=== PATIENT | female | born 2005 | race Caucasian/White ===

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

== ENCOUNTER 2023-06-18 14:37 | Outpatient (REF) | payer MEDICAID, SELFPAY ==
[2023-06-20 22:48] LABS: TS Negative Control Passed; TS Panel A 1; TS Panel B 0; TS Positive Control Passed; TSpotTB Negative (Negative)
== END 2023-06-18 14:38 | disposition home or self-care (01) ==
LOC: HO.CHCLDS 14:37
PROVIDERS: Visit Provider Nurse Practitioner
DX: Z11.1 Encounter for screening for respiratory tuberculosis (principal)
CPT/HCPCS: 36415; 86481

== ENCOUNTER 2023-09-25 09:21 | Outpatient (REF) | payer MEDICAID, SELFPAY | END 2023-09-25 09:22 | disposition home or self-care (01) | LOC: HO.HHCLNP 09:21 | PROVIDERS: Visit Provider Nurse Practitioner | DX: R06.2 Wheezing (principal) | CPT/HCPCS: 87070 ==

== ENCOUNTER 2024-02-16 16:36 | Outpatient (REF) | payer MEDICAID, SELFPAY ==
[2024-02-16 17:58] LABS: Bacterial Vaginosis PCR POSITIVE (Negative); Candida Group PCR NOT DETECTED (Not Detect); Candida glab krusei PCR NOT DETECTED (Not Detect); Trichomonas vaginalis PCR NOT DETECTED (Not Detect)
[2024-02-16 18:34] LABS: CT PCR DETECTED (Not Detect.); NG PCR NOT DETECTED (Not Detect.)
== END 2024-02-16 16:37 | disposition home or self-care (01) ==
LOC: HO.HHCLNP 16:36
PROVIDERS: Visit Provider Advanced Practice Midwife
DX: N89.8 Other specified noninflammatory disorders of vagina (principal)
CPT/HCPCS: 0352U; 87491; 87591

== ENCOUNTER 2024-04-02 11:09 | Outpatient (REF) | payer MEDICAID, SELFPAY ==
[2024-04-02 16:39] LABS: Basophils Percent Auto 0.1 % (0-2); Eosinophils Absolute Auto 0.2 X10*3/uL (0.0-0.4); Eosinophils Percent Auto 2.2 % (0-4); Hematocrit 35.9 % (37.0-47.0); Hemoglobin 11.6 g/dl (12.0-16.0); Imm Gran Abs Auto 0.01 X10*3/uL (0.00-0.03); Imm Gran Pct Auto 0.1 % (0.0-0.4); Lymphocytes Percent Auto 29.1 % (20-40); MANUAL DIFF FLAG NO; Mean Corpuscular HGB Conc 32.3 g/dl (31.0-35.0); Mean Corpuscular Hemoglobin 27.9 pg (27.0-33.0); Mean Corpuscular Volume 86.3 fL (80.0-98.0); Mean Platelet Volume 10.9 fL (9.4-12.3); Monocytes Absolute Auto 0.5 X10*3/uL (0.1-1.2); Monocytes Percent Auto 6.9 % (2-11); Neutrophils Absolute Auto 4.2 x10*3/uL (2.0-8.3); Neutrophils Percent Auto 61.6 % (45-73); Platelet Count 230 X10*3/uL (160-400); Red Blood Count 4.16 X10*6/uL (4.20-5.50); Red Cell Distribution Width 14.2 % (11.0-16.0); White Blood Count 6.8 X10*3/uL (4.8-10.8)
[2024-04-02 17:10] LABS: TSH reflex Free T4 0.56 uIU/mL (0.32-4.0)
== END 2024-04-02 11:10 | disposition home or self-care (01) ==
LOC: HO.HHCL 11:09
PROVIDERS: Visit Provider Nurse Practitioner
DX: R53.83 Other fatigue (principal)
CPT/HCPCS: 36415; 82306; 84443; 85025

== ENCOUNTER 2024-05-13 17:43 | Outpatient (REF) | payer MEDICAID, SELFPAY ==
[2024-05-14 02:24] LABS: CT PCR DETECTED (Not Detect.); NG PCR NOT DETECTED (Not Detect.)
== END 2024-05-13 17:44 | disposition home or self-care (01) ==
LOC: HO.HHCLNP 17:43
PROVIDERS: Visit Provider Advanced Practice Midwife
DX: Z11.3 Encounter for screening for infections with a predominantly sexual mode of transmission (principal)
CPT/HCPCS: 87491; 87591

== ENCOUNTER 2024-08-05 14:55 | Outpatient (REF) | payer MEDICAID, SELFPAY ==
[2024-08-05 17:09] LABS: Estimated Glomerular Filt Rate > 60
[2024-08-06 07:56] LABS: Syphilis Screen Nonreactive (Nonreactive)
[2024-08-06 08:03] LABS: HBc Num1 0.25 S/CO (0.00-0.79); HBsAGNum1 0.38 S/CO (0.00-0.99); HIV AB/AG Nonreactive (Nonreactive); HIV Num 1 0.12 S/CO (0.00-0.99); Hepatitis B Core Antibody Nonreactive (Nonreactive); Hepatitis B Surface Antigen Negative (Negative); ~HepC Num1 0.21 S/CO (0.00-0.79); ~Hepatitis B Surface Antibody NONREACTIVE (Nonreactive); ~Hepatitis C Antibody Nonreactive (Nonreactive)
[2024-08-06 15:46] LABS: CT PCR NOT DETECTED (Not Detect.); NG PCR NOT DETECTED (Not Detect.)
== END 2024-08-05 14:56 | disposition home or self-care (01) ==
LOC: HO.HHCL 14:55
PROVIDERS: Visit Provider Advanced Practice Midwife
DX: Z11.3 Encounter for screening for infections with a predominantly sexual mode of transmission (principal); Z79.899 Other long term (current) drug therapy; Z11.59 Encounter for screening for other viral diseases; Z72.89 Other problems related to lifestyle
CPT/HCPCS: 82565; 86704; 86706; 86780; 86803; 87340; 87389; 87491; 87591

== ENCOUNTER 2024-10-11 13:34 | Outpatient (REF) | payer MEDICAID, SELFPAY ==
--- OUTSIDE RECORDS SUMMARY | 2024-10-11 15:21 | XMS_ITS | Encounter Summary ---
Author Organization [facility] Address [address] [place] [address] [address] [place] [address] Care Team Providers Care Molding Fitter Name Role Phone Collette Porras NP Primary Care Provider [phone] Reason for Visit * Reason Onset Date Comments Nurse Triage 02/23/2024 Encounter Details Date Type Department Care Team ([facility] st Contact Info) Description 02/23/2024 Telephone [facility] [address] [place] [address] Collette Porras NP [address] [place], [place] [phone] Nurse Triage Social History Tobacco Use Types Packs/Day Years Used Date Smoking Tobacco: Never Passive Smoke Exposure: Never Smokeless Tobacco: Never Alcohol Use Standard Drinks/Week Comments Not Currently 0 (1 standard drink = 0.6 oz pur e alcohol) Socially Depression Answer Date Recorded Patient Health Questionnaire-9 Score 8 12/25/2022 Housing Stability Answer Date Recorded What is your housing situation today? I have housing today, but I am worried about losing housing in the future 05/19/[address] you li ve. Do you have problems with any of the following? I am not sure 05/19/2023 Food Insecurity Answer Date Recorded Within the past 12 months, y ou worried that your food would run out before you got money to buy more: Sometimes True 2022 Within the past 12 months,th e food you bought just didn't last and you didn't have enough money to get more: Sometimes True 05/19/2023 Transportation Answer Date Recorded In the past 12 months, has l ack of transportation kept you from medical appts, meetings, work or from getting things needed for daily living? Yes, it has kept me from medical appointments or getting medications. 04/22/2023 Utilities Answer Date Recorded In the past 12 months, has t he electric, gas, oil or water company threatened to shut off services in your home? No 05/19/2023 Depression Answer Date Recorded Patient Health Questionnaire-2 Score 2 12/25/2022 Comments No Sex and Gender Information Value Date Recorded Sex Assigned at Female 05/13/2022 10:25 AM EDT Legal Sex Female 10:25 AM EDT Gender Identity Female 05/13/2022 10:25 AM EDT Sexual Orientation Straight 05/13/2022 10 :25 AM EDT documented as of this encounter Miscellaneous Notes * Telephone Encounter - Mor Reina - 02/23/2024 12:51 PM EDT TC from pt was prescribed doxycycline (Monodox) 100 MG capsule and now is having a med reaction. Itchiness. documented in this encounter Plan of Treatment Not on file documented as of this encounter Visit Diagnoses Not on filedocumented in this encounter Additional Health Concerns Assessment Noted Time PHQ-9 Depression Total Score: 8 12/26/19 23 9:51 AM EDT documented as of this encounter Care Teams Molding Fitter Relationship Specialty Start Date End Date Collette Porras NP [address] [place] [id number] PCP - General Family Medicine 04/22/23 documented as of this encounter
--- OUTSIDE RECORDS SUMMARY | 2024-10-11 15:21 | XMS_ITS | Encounter Summary ---
Author Organization [facility] Address [address] [place] [address] [address] [place] [address] Care Team Providers Care Circulation Assistant Name Role Phone Collette Porras PAC[place] Primary Care Provider [phone] Encounter Details Date Type Department Care Team (Latest Contact Info) Description 10/11/2024 Travel Social History Tobacco Use Types Packs/Day Years Used Date Smoking Tobacco: Never Passive Smoke Exposure: Never Smokeless Tobacco: Never Alcohol Use Standard Drinks/Week Comments Not Currently 0 (1 standard drink = 0.6 oz pur e alcohol) Socially Alcohol Answer Date Recorded Frequency of Alcohol Consumption Not on file 04/02/2024 Average Number of Drinks Not on file 024 Frequency of Binge Drinking Not on file 03/15 Score 0 04/02/2024 Depression Answer Date Recorded Patient Health Questionnaire-9 Score 1 04/02/2024 Patient Health Questionnaire-9 Score 1 04/02/2024 Last PHQ-9: Questionnaire Data Not on file 0 04/02/2024 Housing Stability Answer Date Recorded What is your housing situation today? I have erick kimbrough 03/26/[address] you li ve. Do you have problems with any of the following? I am not sure 03/26/2024 Food Insecurity Answer Date Recorded Within the past 12 months, y ou worried that your food would run out before you got money to buy more: Never True 03/26/2024 Within the past 12 months,th e food you bought just didn't last and you didn't have enough money to get more: Never True Transportation Answer Date Recorded In the past 12 months, has l ack of transportation kept you from medical appts, meetings, work or from getting things needed for daily living? No 03/26/2024 Utilities Answer Date Recorded In the past 12 months, has t he electric, gas, oil or water company threatened to shut off services in your home? No 03/26/2024 Depression Answer Date Recorded Patient Health Questionnaire-2 Score 0 04/02/2024 Internet Access Answer Date Recorded Internet Access Q1 Yes 03/26/2024 Internet Access Q2 Not on file 03/26/2024 Comments No Sex and Gender Information Value Date Recorded Sex Assigned at Female 05/13/2022 10:25 AM EDT Legal Sex Female 10:25 AM EDT Gender Identity Female 05/13/2022 10:25 AM EDT Sexual Orientation Straight 05/13/2022 10 :25 AM EDT documented as of this encounter Plan of Treatment Not on file documented as of this encounter Visit Diagnoses Not on filedocumented in this encounter Additional Health Concerns Assessment Noted Time PHQ-9 Depression Total Score: 1 04/02/20 24 9:54 AM EDT documented as of this encounter Care Teams Circulation Assistant Relationship Specialty Start Date End Date Collette Porras NP [address] [place] [id number] PCP - General Family Medicine 04/22/23 documented as of this encounter
--- OUTSIDE RECORDS SUMMARY | 2024-10-11 15:21 | XMS_ITS | Encounter Summary ---
Author Organization [facility] Address [address] [facility] [address] [place] [address] Care Team Providers Care Coating Machine Operator Name Role Phone Collette Porras NP Primary Care Provider [phone] Encounter Details Date Type Department Care Team ([facility] st Contact Info) Description 07/24/2023 Abstract [facility] [address] [place], [place] [phone] Collette Porras NP [address] [place], [place] [phone] Social History Tobacco Use Types Packs/Day Years Used Date Smoking Tobacco: Never Passive Smoke Exposure: Never Smokeless Tobacco: Never Alcohol Use Standard Drinks/Week Comments Not Currently 0 (1 standard drink = 0.6 oz pur e alcohol) Depression Answer Date Recorded Patient Health Questionnaire-9 [...] Time PHQ-9 Depression Total Score: 8 12/26/19 9:51 AM EDT documented as of this encounter Care Teams Coating Machine Operator Relationship Specialty Start Date End Date Collette Porras NP [address] [place] [id number] PCP - General Family Medicine 04/22/23 documented as of this encounter
--- OUTSIDE RECORDS SUMMARY | 2024-10-11 15:21 | XMS_ITS | Clinical Summary ---
Author Organization [employer] Address [address] [place] [address] 7 [place] [address] Care Team Providers Care Assistant Auditor Name Role Phone Collette Porras NP Primary Care Provider [phone] Allergies Active Allergy Reactions Criticality Noted Date Comments Egg White (Egg Protein) 12/25/2022 Latex Hives 12/25/2022 Shellfish Allergy High 12/25/2022 Medications * This document contains information received from the source organization and may not represent a complete record from that organization. fluticasone (Flonase) 50 MCG/ACT nasal sprayIndication s:Seasonal allergic rhinitis, unspecified trigger Administer 1 spray into each nostril in the morning. Shake gently. Before first use, prime pump. After use, clean tip and replace cap. 16 g 2 3 Active Additional Information Patient not taking.Reported on 09/24/2023 Nebulizers miscIndications :Moderate asthma with exacerbation, unspecified whether persistent Use nebulizer as instructed 1 each 4 Active Respiratory Therapy Supplies (Nebulizer/Tubi ng/Mouthpiece) kitIndications: Moderate asthma with exacerbation, unspecified whether persistent To be used with Nebulizer 1 kit 2 4 Active albuterol (2.5 MG/3ML) 0.083% nebulizer solutionIndicat ions:Moderate asthma with exacerbation, unspecified whether persistent Take 3 mL (2.5 mg) by nebulization every 6 (six) hours if needed for wheezing or shortness of breath. 75 mL 2 4 Active fluconazole (Diflucan) 150 MG tablet One tablet now. Repeat in 72h if needed 2 tablet 4 Active Mometasone Furoate (Asmanex HFA) 100 MCG/ACT aerosolIndicati ons:Moderate asthma with exacerbation, unspecified whether persistent Inhale 1 puff 2 times daily. Rinse and spit mouth after each use 13 g 4 Active albuterol 108 (90 Base) MCG/ACT inhalerIndicati ons:Moderate asthma with exacerbation, unspecified whether persistent Take 1-2 puffs q6 hr as needed wheezing or shortness of breath 18 g 3 4 Active cetirizine (ZyrTEC) 10 MG tabletIndicatio ns:Seasonal allergies Take 1 tablet (10 mg) by mouth at bedtime. 30 tablet 3 4 Active salicylic acid 17 % gelIndications: Foot callus Apply topically Once per day. 7 g 1 4 Active ferrous gluconate (Fergon) 324 (38 Fe) MG tablet Take 1 tablet (324 mg) by mouth every other day. Take with vitamin C 15 tablet 2 4 04/05/20 25 Active Ascorbic Acid (vitamin C) 250 MG tablet Take 1 tablet (250 mg) by mouth every other day. Take with iron 15 tablet 2 4 04/05/20 25 Active cholecalciferol (Vitamin D-3) 20 MCG (800 UNIT) tablet Take 1 tablet (20 mcg) by mouth Once per day. 30 tablet 2 4 Active doxycycline (Monodox) 100 MG capsule One twice a day for 7 days. Take with at least 8 ounces (large glass) of water, do not lie down for 30 minutes after 14 capsule 4 Active Drospirenone (Slynd) 4 MG tablet Take 1 tablet by mouth Once per day. 28 tablet 11 5 Active emtricitabine-t enofovir DF (Truvada) 200-300 MG tablet One tablet by mouth daily 90 tablet 5 Active metroNIDAZOLE (Flagyl) 500 MG tablet Take 1 tablet (500 mg) by mouth 2 times daily for 7 days. 14 tablet 5 10/19/19 25 Active Active Problems Problem Noted Date Diagnosed Date Wheezing 12/23/2023 Assessment & Plan (12/23/2023 11:41 PM EDT): -patient given albuterol treatment in clinic with positive results. LS clear with diminished bases following treatment and peak flow rate 300 L/min -albuterol nebulizer solution prescribed Moderate asthma with exacerbation 12/23/2023 Assessment & Plan (12/23/2023 11:49 PM EDT): -symptoms as assessment findings suggestive of asthma exacerbation complicated by URI -prednisone 40 mg daily for 5 days starting today -prescription for asmanex inhaler sent to pharmacy -albuterol inhaler and nebulizer solution with supplies prescribed. Patient advised use of nebulizer solution q6 h for 2 days then use as needed -follow-up 1 week or with worsening symptoms Routine adult health maintenance 12/23/2023 Assessment & Plan (12/23/2023 11:45 PM EDT): -age appropriate screening and immunizations up to date -STI screening to be completed at next visit -low cardiovascular risk -mental health screening to be completed at next visit -healthy social behaviors encouraged -anticipatory guidance reviewed: diet and exercise to be discussed at later visit Cough in adult 12/23/2023 Assessment & Plan (12/23/2023 11:49 PM EDT): -likely URI triggering asthma exacerbation -Rapid Influenza and Strep all negative today -advised increase fluid intake and rest -Sore throat: salt water gargles, drink tea with honey & lemon, suck lozenge -come to walk-in center if develop fever or symptoms worsen MDD (major depressive disorder) 12/26/2022 Assessment & Plan (12/26/2022 12:12 PM EDT): Assessment: Patient with little interest, feeling depressed, insomnia, no motivation, feeling overwhelmed/tired, poor appetite, difficulties in focusing, and feeling bad about herself. She denies SI/HI. Patient reports no history of psychiatric hospitalizations, self harm behavior, SI, or suicidal attempts. Presentation in the context of homelessness and lack of support. Patient will benefit from case management which provider will complete the referral. At this time Sarthak Stoddard meets criteria for Visit Diagnoses: Problem List Items Addressed This Visit Other MDD (major depressive disorder) Patient ready to address current needs address homelessness Strengths include open to receive help PLAN: 1. Follow up with [facility]: Not recommended for follow-up 2. Patient goal is obtain housing 3. Behavioral Recommendations a. Patient will engage with case management b. Patient may request to speak with a [facility] during next PCP visit, if needed Constipation 12/25/2022 Maternal varicella, non-immune 12/25/2022 Pilonidal disease 02/01/2022 Overweight 12/11/2021 Anxiety 12/10/2018 Allergic rhinitis 04/29/2013 Contact dermatitis 04/29/2013 Resolved Problems Problem Noted Date Diagnosed Date Resolved Date Environmental and seasonal allergies 12/25/2022 12/25/2022 Mild intermittent asthma 12/25/2022 Encounters Date Type Department Care Team Description 10/11/2024 1:00 PM EDT Office Visit [facility] [address] [place] [phone] Mirella Emerson CNM Urinary frequency (Primary Dx); Vaginal discharge; Routine cervical smear; Screening examination for venereal disease 10/11/2024 Travel 09/24/2024 Population Health Risk Score [facility] Department [address] [place] [phone] Provider, Population Health Generic 08/06/2024 Telephone [facility] [address] [place] [phone] Gauri Rivera, KAYA 08/06/[address] [address] Roxana Cannon RN Results 08/06/2024 Orders Only [facility] [address] [place] [phone] Mirella Emerson CNM 07/19/2024 11:15 AM EST Office Visit [address] [address] Mirella Emerson CNM Encntr screen for infections w sexl mode of transmiss (Primary Dx); 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 khai fied surface antigen) 04/29/2013 Influenza, seasonal, injecta ble, preservative free 04/02/2024 MMR 08/10/2007,2004 Meningococcal MCV4P ACYW-135 12/11/2021,08/02/19 15 Pfizer Covid-19 Vaccine 12+ 06/18/2023 Pneumococcal Conjugate PCV 7 08/10/2007, 03/23/2004,2003,08/16 Tdap 08/06/2022,04/10/2020,08/02/2014 Varicella 11/23/2007,2004 Social History Tobacco Use Types Packs/Day Years Used Date Smoking Tobacco: Never Passive Smoke Exposure: Never Smokeless Tobacco: Never Tobacco Cessation:Counseling Given: Not Answered Alcohol Use Standard Drinks/Week Comments Not Currently [...] Orientation Straight 05/13/2022 10 :25 AM EDT Last Filed Vital Signs Vital Sign Reading Time Taken Comments Blood Pressure 128/60 10/11/2024 1:04 PM EDT Pulse 72 10/11/2024 1:04 PM EDT Temperature 36.8 ??C (98.2 ??F) 10/11/2024 1:04 PM ED T Respiratory Rate 16 10/11/2024 1:0 4 PM EDT Oxygen Saturation 100% 10/11/2024 1:04 PM EDT Inhaled Oxygen Concentration - - Weight 58.4 kg (128 lb 12.8 oz) 10/11/2024 1:04 PM EDT Height 149.9 cm (4' 11 ) 10/11/2024 1:04 PM EDT Body Mass Index 26.01 10/11/2024 1:04 PM EDT Plan of Treatment Health Maintenance Due Date Last Done Comments Dental Oral Exam 04/19/2016 10/18/2015, , 09/28/2014, Additional history exists Dental Prophylaxis 04/19/2016 10/18/2015, 0 04/07/2015, 09/28/2014, Additional history exists Dental X-Ray: Bitewings 10/18/2016 10/18/19 16, 04/07/2015, 09/28/2014, Additional history exists Dental X-Ray: Full Mouth 10/20/2017 10/19/2014 Pneumococcal Vaccine: Pediatrics (0 to 5 Years) and At-Risk Patients (6 to 49) Years) (1 of 2 - PCV) 2022 08/10/2007, 03/23/2004, 2003, Additional history exists COVID-19 Vaccine ( season) 2024 06/18/2023, 02/06/2022, 12/12/2021 Pap Smear 2024 SDOH Screening 03/26/2025 03/26/2024 Alcohol/Substance Use Screening 04/02/2025 04/02/2024 Depression Screening 04/02/2025 04/02/2024, 04/02/20 Chlamydia and Gonorrhea Screening 08/05/2025 08/05/2024, 05/13/2024, 02/16/2024, Additional history exists Family Planning (PISQ) 10/11/2025 10/11/2024 Tobacco Screening 10/11/2025 10/11/2024 DTaP/Tdap/Td Vaccines (9 - Td or Tdap) 08/06/2032 08/06/2022, 04/10/2020, 08/02/2014, Additional history exists Zoster Vaccines (1 of 2) 2053 RSV Patients and Patients Aged 60 years or older (1 - 1-dose 75+ series) 2078 Hepatitis B Vaccines Completed 03/23/2004, 2003, 2003 HIB Vaccines Completed 09/12/2004, 10/12, 2003 IPV Vaccines Completed 08/10/2007, 03/14, 2003, Additional history exists Hepatitis A Vaccines Completed 08/02/2014, 04/29/20 13 HPV Vaccines Completed 08/01/2016, 08/02/2014 Meningococcal Vaccine Completed 12/11/2021, 015 Influenza Vaccine Completed 04/02/2024, , 04/10/2020, Additional history exists HIV Screening Completed 08/05/2024, 12/12, 12/11/2021 Hepatitis C Screening Completed 08/05/2024 , 12/25/2022, 12/11/2021 RSV under 20 months Aged Out No longe r eligible based on patient's age to complete this topic Rotavirus Vaccines Aged Out No longer eligible based on patient's age to complete this topic Procedures Procedure Name Priority Date/Time Associated Diagnosis Comments POCT WET MOUNT/ALEXANDRA Routine 10/11/2024 2: 06 PM EDT Vaginal discharge POCT URINALYSIS DIPSTICK Routine 10/11/2024 1:21 PM EDT Urinary frequency HEPATITIS C AB W/REFL TO HCV RNA, QN, PCR Routine 08/05/2024 3:00 PM EST Encntr screen for infections w sexl mode of transmiss HIV 1/2 ANTIGEN/ANTIBODY, FOURTH GENERATION W/RFL Routine 08/05/2024 3:00 PM EST Encntr screen for infections w sexl mode of transmiss SYPHILIS SCREEN Routine 08/05/2024 3:00 PM EST Encntr screen for infections w sexl mode of transmiss HEPATITIS B CORE AB TOTAL Routine 08/05/2024 3:00 PM EST Encntr screen for infections w sexl mode of transmiss HEPATITIS B SURFACE ANTIGEN, EIA Routine 08/05/2024 3:00 PM EST Encntr screen for infections w sexl mode of transmiss HEPATITIS B SURFACE ANTIBODY, QUALITATIVE Routine 08/05/2024 3:00 PM EST Encntr screen for infections w sexl mode of transmiss CREATININE, SERUM Routine 08/05/2024 3:0 0 PM EST prison use of drug CHLAMYDIA/N. GONORRHOEAE RNA, TMA, UROGENITAL Routine 08/05/2024 3:00 PM EST Encntr screen for infections w sexl mode of transmiss PROPHYLAXIS - CHILD Routine 10/18/2015 1 2:00 AM EDT BITEWINGS - 4 RADIOGRAPHIC IMAGES Routine 10/18/2015 12:00 AM EDT PERIODIC ORAL EVALUATION - ESTABLISHED PATIENT Routine 10/18/2015 12:00 AM EDT PANORAMIC RADIOGRAPHIC IMAGE Routine 10/19/2014 12:00 AM EDT from Last 3 Months or Most Recently Relevant to Health Maintenance Results * POCT fern test, vaginal fluid manually resulted (10/11/2024 2:06 PM EDT) ALEXANDRA Prep Positive Comment:pH 5, pos whiff, pos clue, neg trich, neg wbc Vaginal Fluid Vaginal structure / Unknown 10/11/2024 2:06 PM EDT [facility] [employer] POINT OF CARE TEST ENTER/ EDIT ORDERABLES Final Result * POCT urinalysis dipstick manually resulted (10/11/2024 1:21 PM EDT) Color, UA Yellow Clarity, UA Clear Glucose, UA Negative Bilirubin, UA Negative Ketones, UA Negative Spec Grav, UA 1.010 Blood, UA Negative Negative, None Detected pH, UA 7.0 Protein, UA Negative Urobilinogen, UA 0.2 Leukocytes, UA Negative Negative, Rare, Trace Nitrite, UA Negative Negative, None Detected Appearance, UA clear QC Media Lot # [id number] Lot# Expiration Date [id number] Urine 10/11/2024 1:21 PM EDT [facility] POINT OF CARE TEST ENTER/ EDIT ORDERABLES Final Result * Syphilis Screen (08/05/2024 3:00 PM EST) Syphilis Screen Nonreactive Nonreactive [facility] Blood Venous blood specimen / Unknown 08/05/2024 3:00 PM EST 08/05/2024 4:36 PM EST [facility] LAB BLOOD ORDERABLES Megan l Result Performing Organization Address [facility] Co de Phone Number [facility] [address] [place] [phone] * Creatinine, Serum (08/05/2024 3:00 PM EST) Pathologist [facility] Creatinine, Serum 0.83 0.5 - 1.4 mg/dL [facility] Estimated Glomerular Filt Rate >60 [facility] Comment:Chronic Kidney Disea se: Estimated GFR < 60 mL/min/1.76q2Hosrlv Kidney Disease: Estimated GFR < 15 mL/min/1.73m2 Blood 08/05/2024 3:0 0 PM EST 08/05/2024 4:36 PM EST [facility] LAB BLOOD ORDERABLES Megan l Result Performing Organization Address [facility] Co de Phone Number [facility] [address] [place] [phone] * Hepatitis C Antibody with Reflex to HCV, RNA, Quantitative, Real-Time PCR (08/05/2024 3:00 PM EST) [facility] Hepatitis C Antibody Nonreactive Nonreactive [facility] Comment:Antibodies to HCV no t detected; does not exclude early acuteHCV infection. Blood Venous blood specimen / Unknown 08/05/2024 3:00 PM EST 08/05/2024 4:36 PM EST [facility] BLOOD ORDERABLES Megan l Result Performing Organization Address [facility] Co de Phone Number [facility] [address] [place] [phone] * Chlamydia/N. Gonorrhoeae RNA, TMA, Urine (08/05/2024 3:00 PM EST) CT PCR NOT DETECTED Not Detect. [facility] Comment:A not detected test result does not exclude the possibilityof infection because test results can be affected byimproper specimen collection, concurrent antibiotic therapy,or the number of organisms in the specimen which may bebelow the sensitivity of the test. As with many diagnostictests, results from the Xpert CT/NG assay should beinterpreted in conjunction with other laboratory andclinical data available to the clinician.Xpert CT/NG performance has not been evaluated in patientsless than 14 years of age. The assay should not be used forthe evaluationof suspected sexual abuse or for other medico-legalindications. Additional testing is recommended in anycircumstance when false positive or false negative resultscould lead to adverse medical, social or psychologicalconsequences. NG PCR NOT DETECTED Not Detect. [facility] Comment:A not detected test result does not exclude the possibilityof infection because test results can be affected byimproper specimen collection, concurrent antibiotic therapy,or the number of organisms in the specimen which may bebelow the sensitivity of the test. As with many diagnostictests, results from the Xpert CT/NG assay should beinterpreted in conjunction with other laboratory andclinical data available to the clinician.Xpert CT/NG performance has not been evaluated in patientsless than 14 years of age. The assay should not be used forthe evaluationof suspected sexual abuse or for other medico-legalindications. Additional testing is recommended in anycircumstance when false positive or false negative resultscould lead to adverse medical, social or psychologicalconsequences. Urine, Random 08/05/2024 3: 00 PM EST 08/05/2024 4:49 PM EST Narrative [facility] - 08/06/2024 3:46 PM EST Urine us Mirella Emerson CNM LAB MICROBIOLOGY - GENERA L ORDERABLES Final Result [facility] [address] [place] [phone] * Hepatitis B surface antigen, EIA (08/05/2024 3:00 PM EST) Pathologist [facility] Hepatitis B Surface Ag Negative Negative [facility] Blood Venous blood specimen / Unknown 08/05/2024 3:00 PM EST 08/05/2024 4:36 PM EST [facility] BLOOD ORDERABLES Megan l Result Performing Organization Address City/[facility]/ZIP Co de Phone Number [facility] [address] [place] [phone] * Hepatitis B Core Antibody, Total (08/05/2024 3:00 PM EST) Pathologist [facility] Hepatitis B Core Antibody Nonreactive Nonreactive [facility] Blood Venous blood specimen / Unknown 08/05/2024 3:00 PM EST 08/05/2024 4:36 PM EST [facility] LAB BLOOD ORDERABLES Megan l Result Performing Organization Address City/[facility] Co de Phone Number [facility] [address] [place] [phone] * HIV-1/2 Antigen and Antibodies, Fourth Generation, with Reflexes (08/05/2024 3:00 PM EST) Pathologist [facility] HIV AB/AG Nonreactive Nonreactive [facility] Comment:HIV-1 p24 Ag and/or HIV-1/HIV-2 Ab not detected.A test result that is nonreactive does not exclude thepossibility of exposure to or infection with HIV-1 and/orHIV-2. Nonreactive results in this assay for individualswith prior exposure to HIV-1 and/or HIV-2 may be due toantigen and antibody levels that are below the limit ofdetection of this assay.The [employer] HIV Ag/Ab Combo assay result andsupplemental assay results should be interpreted inconjunction with the patient's clinical presentation,history and other laboratory results. If the results areinconsistent with clinical evidence, additional testing issuggested to confirm the result. Blood Venous blood specimen / Unknown 08/05/2024 3:00 PM EST 08/05/2024 4:36 PM EST Mirella Meeksprimitivo [employer] [facility] LAB BLOOD ORDERABLES Megan l Result Performing Organization Address City/[facility] Co de Phone Number [facility] [address] [place] [phone] [phone] * Hepatitis B Surface Antibody, Qualitative (08/05/2024 3:00 PM EST) ~Hepatitis B Surface Antibody NONREACTIVE Nonreactive [facility] Comment:Nonreactive: < 8.00 mIU/mL Blood Venous blood specimen / Unknown 08/05/2024 3:00 PM EST 08/05/2024 4:36 PM EST [facility] [facility] LAB BLOOD ORDERABLES Megan l Result Performing Organization Address City/[facility] Co de Phone Number [facility] [address] [place] [phone] [phone] from Last [address] [facility] C3 * Guarantor: Sarthak Stoddard Account Type Relation to Patient Date of Phone Billing Address Dental Self 2005 [address] [place] [address] [address]-[facility] MEDICAID STAND ADULT Care Teams Assistant Auditor Relationship Specialty Start Date End Date Collette Porras NP [address] [place] [phone] PCP - General Family Medicine 04/22/23
--- OUTSIDE RECORDS SUMMARY | 2024-10-11 15:21 | XMS_ITS | Encounter Summary ---
Author Organization [email or web address] Address [address] [facility] [address] [place] [address] Care Team Providers Care Vessel Ordinary Seaman Name Role Phone Karleykelly Collette PACHECO Primary Care Provider [phone] Encounter Details Date Type Department Care Team ([facility] st Contact Info) Description 02/17/2024 Orders Only [facility] [address] [place], [place] [phone] Mirella Emerson CNM [address] [place], [place] [phone] Social History Tobacco Use Types Packs/Day Years [...] documented as of this encounter Care Teams Vessel Ordinary Seaman Relationship Specialty Start Date End Date Collette Porras NP [address] [place] [address] PCP - General Family Medicine 04/22/23 documented as of this encounter
--- OUTSIDE RECORDS SUMMARY | 2024-10-11 15:21 | XMS_ITS | Encounter Summary ---
Author Organization [facility] Address [address] [place] [address] [address] [place] [address] Care Team Providers Care Home Energy Auditor Name Role Phone Collette Porras NP Primary Care Provider [phone] Reason for Visit * Reason Onset Date Comments Lab Orders 06/17/2023 Encounter Details Date Type Department Care Team (Late st Contact Info) Description 06/17/2023 Telephone [facility] [address] [place] [address] Collette Porras NP [address] [place], [place] [phone] Lab Orders Social History Tobacco Use Types Packs/Day Years [...] encounter Miscellaneous Notes * Telephone Encounter - Ghassan Padilla RN - 06/18/2023 11:47 AM EST Incoming call from pt. For order TB lab order for school. TB lab order is in pt's chart. Pt. Advised to go to lab at her convenience. Pt. Also looking for Flu vaccine, advised to go to walk in at vaccine clinic at her convenience. Pt. Verbally agreed and understood. * Telephone Encounter - Ghassan Padilla RN - 06/18/2023 11:19 AM EST T/C to pt. For below message, No answer. LVM to call back on [phone]. 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 documented in this encounter Plan of Treatment Not on file documented as of this encounter Visit Diagnoses Not on filedocumented in this encounter Additional Health Concerns Assessment Noted Time PHQ-9 Depression Total Score: 8 12/26/19 23 9:51 AM EDT documented as of this encounter Care Teams Home Energy Auditor Relationship Specialty Start Date End Date Collette Porras NP [address] [place] [address] PCP - General Family Medicine 04/22/23 documented as of this encounter
--- OUTSIDE RECORDS SUMMARY | 2024-10-11 15:21 | XMS_ITS | Encounter Summary ---
Author Organization [employer] [facility] Address [address] [place] [address] 7 [place] [address] Care Team Providers Care Ophthalmic Pathologist Name Role Phone Karleykelly Collette BERGMAN Primary Care Provider [phone] Reason for Visit * Reason Comments Gynecologic Exam Encounter Details Date Type Department Care Team ([facility] st Contact Info) Description 10/11/2024 1:00 PM EDT Office Visit [facility] [address] [place] [address] Mirella Emerson CNM [address] [place] [address] Urinary frequency (Primary Dx); Vaginal discharge; Routine cervical smear; Screening examination for venereal disease Social History Tobacco Use Types Packs/Day Years [...] AM EDT documented as of this encounter Last Filed Vital Signs Vital Sign Reading Time Taken Comments Blood Pressure 128/60 10/11/2024 1:04 PM EDT Pulse 72 10/11/2024 1:04 PM EDT Temperature 36.8 ??C (98.2 ??F) 10/11/2024 1:04 PM ED T Respiratory Rate 16 10/11/2024 1:04 PM EDT Oxygen Saturation 100% 10/11/2024 1:04 PM EDT Inhaled Oxygen Concentration - - Weight 58.4 kg (128 lb 12.8 oz) 10/11/2024 1:04 PM EDT Height 149.9 cm (4' 11 ) 10/11/2024 1:04 PM EDT Body Mass Index 26.01 10/11/2024 1:04 PM EDT documented in this encounter Progress Notes * Mirella Emerson CNM - 10/11/2024 1:00 PM EDT Subjective Patient ID: Sarthak Stoddard is a 19 y.o. female who presents for PROGRAM [employer]IDE [employer] WORK visit Positive chlamydia 05/13/2024, rx'd doxycycline. New rx sent in 06/15/2024. Gonorrhea/Chlamydia neg,HIV, syphilis, Hep C neg 07/2024. Hep B nonimmune. Switched from NuvaRing to Slynd due to new onset migraines. Not currently taking oral contraceptivepill or Truvada. Using condoms. 2 AMAB partners since last visit with me. Oral/vaginal sex. Notes some urinary frequency and vaginal discharge recently. Due for pap, agrees to this today. Received HPV vaccine series. Happy with condoms for now. Aware of EC. Planning to start oral contraceptive pill in the near future. Has Truvada rx at home, but hasn't started. LMP 09/19, on time and normal for her. Review of Systems Genitourinary: Positive for frequency and vaginal discharge. Negative for decreased urine volume, dyspareunia, dysuria, flank pain, hematuria, menstrual problem, pelvic pain, urgency, vaginal bleeding and vaginal pain. Objective BP 128/60 (BP Location: Left arm, Patient Position: Sitting, BP Cuff Size: Adult) Pulse 72 Temp98.2 ??F (36.8 ??C) (Temporal) Resp 16 Ht 4' 11 (1.499 m) Wt 128 lb 12.8 oz (58.4 kg) LMP 09/19/2024 (Exact Date) SpO2 100% BMI 26.01 kg/m?? Physical Exam Constitutional: Appearance: Normal appearance. Genitourinary: General: Normal vulva. Labia: Right: No rash, tenderness, lesion or injury. Left: No rash, tenderness, lesion or injury. Vagina: Normal. No signs of injury and foreign body. No vaginal discharge, erythema, tenderness, bleeding or lesions. Cervix: No cervical motion tenderness, discharge, friability, lesion, erythema, cervical bleeding or eversion. Uterus: Normal. Not enlarged and not tender. Adnexa: Right adnexa normal and left adnexa normal. Right: No mass, tenderness or fullness. Left: No mass, tenderness or fullness. Neurological: Mental Status: She is alert. Psychiatric: Mood and Affect: Mood normal. Behavior: Behavior normal. Assessment/Plan Diagnoses and all orders for this visit: Urinary frequency - POCT urinalysis dipstick manually resulted Negative UA. Will treat bacterial vaginosis. Let me know if urinary symptoms persist. Vaginal discharge - POCT fern test, vaginal fluid manually resulted Consistent with bacterial vaginosis. Prefers oral treatment. Metronidazole sent in. Abstain from sex during treatment. Report worsening or persistent symptoms. Routine cervical smear - Pap Smear Initial pap today. Reviewed indications for screening and usual followup. Will contact with results. Repeat 3y if normal. Reviewed that minor cellular changes are common, and if these are noted, we will repeat pap in 1y. Screening examination for venereal disease - STI testing add on (NG, CT, Trich) - Chlamydia/N. Gonorrhoeae RNA, TMA, Throat; Future - Syphilis Screen; Future - HIV-1/2 Antigen and Antibodies, Fourth Generation, with Reflexes; Future Oral and pap based STI testing sent. HIV/syphilis ordered. Will contact with results. If HIV negative, may start Truvada which she has at home. Will need followup at 3 months. Will offer Heplisav vaccine when we contact with results. Briefly discussed DoxyPEP. Reviewed not advised if or possibility of , reviewed lack of data for AFAB folks, but we have no reason to think it wouldn't be effective. Let me know if interested. Will check in again on this when we contact with results. Other orders - metroNIDAZOLE (Flagyl) 500 MG tablet; Take 1 tablet (500 mg) by mouth 2 times daily for 7 days. documented in this encounter Plan of Treatment Scheduled Orders Name Type Priority Associated Diagnoses Order Schedule Pap Smear Pathology and Cytology Routine Routine cervical smear Ordered: 10/11/2024 STI testing add on (NG, CT, Trich) Pathology and Cytology Routine Screening examination for venereal disease Ordered: 10/11/2024 Chlamydia/N. Gonorrhoeae RNA, TMA, Throat Microbiology Routine Screening examination for venereal disease Expected: 10/11/2024 (Approximate), Expires: 10/11/2025 Syphilis Screen Lab Routine Screening examination for venereal disease Expected: 10/11/2024 (Approximate), Expires: 10/11/2025 HIV-1/2 Antigen and Antibodies, Fourth Generation, with Reflexes Lab Routine Screening examination for venereal disease Expected: 10/11/2024 (Approximate), Expires: 10/11/2025 documented as of this encounter Procedures Procedure Name Priority Date/Time Associated Diagnosis Comments POCT WET MOUNT/ALEXANDRA Routine 10/11/2024 2: 06 PM EDT Vaginal discharge POCT URINALYSIS DIPSTICK Routine 10/11/2024 1:21 PM EDT Urinary frequency documented in this encounter Results * POCT fern test, vaginal fluid manually resulted (10/11/2024 2:06 PM EDT) ALEXANDRA Prep Positive Comment:pH 5, pos whiff, pos clue, neg trich, neg wbc Vaginal Fluid Vaginal structure / Unknown 10/11/2024 2:06 PM EDT Mirella Emerson [facility] POINT OF CARE TEST ENTER/ EDIT ORDERABLES [...] Media Lot # [id number] Lot# Expiration Date [id number] Urine 10/11/2024 1:21 PM EDT Mirella Emerson [facility] POINT OF CARE TEST ENTER/ EDIT ORDERABLES Final Result documented in this encounter Visit Diagnoses Diagnosis Urinary frequency- Primary Vaginal discharge Leukorrhea, not specified as infective Routine cervical smear Screening for malignant neoplasm of the cervix Screening examination for venereal disease documented in this encounter Additional Health Concerns Assessment Noted Time PHQ-9 Depression Total Score: 1 04/02/20 24 9:54 AM EDT documented as of this encounter Care Teams Ophthalmic Pathologist Relationship Specialty Start Date End Date Collette Porras NP [address] [place] [address] PCP - General Family Medicine 04/22/23 documented as of this encounter
[2024-10-12 08:19] LABS: HIV AB/AG Nonreactive (Nonreactive); HIV Num 1 0.06 S/CO (0.00-0.99)
[2024-10-12 08:21] LABS: Syphilis Screen Nonreactive (Nonreactive)
== END 2024-10-11 13:35 | disposition home or self-care (01) ==
LOC: HO.HHCL 13:34
PROVIDERS: Visit Provider Advanced Practice Midwife
DX: Z11.3 Encounter for screening for infections with a predominantly sexual mode of transmission (principal)
CPT/HCPCS: 36415; 86780; 87389

== ENCOUNTER 2024-10-11 16:38 | Outpatient (REF) | payer MEDICAID, SELFPAY ==
--- OUTSIDE RECORDS SUMMARY | 2024-10-11 18:07 | XMS_ITS | Encounter Summary ---
Author Organization [employer] Address [address] [place] [address] 7 [place] [address] Care Team Providers Care Security Sme Name Role Phone Collette Porras NP Primary Care Provider [phone] Reason for Visit * Reason Onset Date Comments Lab Orders 06/17/2023 Encounter Details Date Type Department Care Team (Late st Contact Info) Description 06/17/2023 Telephone [facility] MEDICINE [address] [place] [address] Collette Porras NP [address] [place], [place] [phone] Lab Orders Social History Tobacco Use Types [...] No answer. LVM to call back on [phone]. * Telephone Encounter - Dorie Goss - [...] documented as of this encounter Care Teams Security Sme Relationship Specialty Start Date End Date Collette Porras NP [address] [place] [address] PCP - General Family Medicine 04/22/23 documented as of this encounter
--- OUTSIDE RECORDS SUMMARY | 2024-10-11 18:07 | XMS_ITS | Clinical Summary ---
Author Organization [employer] Address [address] [place] [address] 7 [place] [address] Care Team Providers Care Gunnery/Ordnance Officer Name Role Phone Collette Porras NP Primary Care Provider [phone] Allergies Active Allergy Reactions Criticality Noted Date [...] receive help PLAN: 1. Follow up with [facility]: Not recommended for follow-up 2. Patient goal is obtain housing 3. Behavioral Recommendations a. Patient will engage with case management b. Patient may request to speak with a [facility] during next PCP visit, if needed Constipation 12/25/2022 Maternal varicella, non-immune 12/25/2022 Pilonidal disease 02/01/2022 Overweight 12/11/2021 Anxiety 12/10/2018 Allergic rhinitis 04/29/2013 Contact dermatitis 04/29/2013 Resolved Problems Problem Noted Date Diagnosed Date Resolved Date Environmental and seasonal allergies 12/25/2022 12/25/2022 Mild intermittent asthma 12/25/2022 Encounters Date Type Department Care Team Description 10/11/2024 1:00 PM EDT Office Visit [facility] MEDICINE [address] [place] [phone] Mirella Emerson CNM Urinary frequency (Primary Dx); Vaginal discharge; Routine cervical smear; Screening examination for venereal disease 10/11/2024 Travel 09/24/2024 Population Health Risk Score [facility] Department [address] [place] [phone] Provider, Population Health Generic 08/06/2024 Telephone [facility] [address] [place] [address] Gauri Rivera, KAYA 08/06/[address] [address] Roxana Cannon RN Results 08/06/2024 Orders Only [facility] [address] [place] [address] Mirella Emerson CNM 07/19/2024 11:15 AM EST Office Visit [address] [address] Mirella Emerson CNM Encntr screen for infections w sexl mode of transmiss (Primary Dx); keno terminal operator use of drug 07/19/2024 Travel from Last [...] SERUM Routine 08/05/2024 3:0 0 PM EST senior care use of drug CHLAMYDIA/N. GONORRHOEAE RNA, TMA, [...] structure / Unknown 10/11/2024 2:06 PM EDT [facility] POINT OF CARE TEST ENTER/ EDIT ORDERABLES [...] Media Lot # [id number] Lot# Expiration Date [id number] Urine 10/11/2024 1:21 PM EDT [facility] POINT OF CARE TEST ENTER/ EDIT ORDERABLES Final Result * Syphilis Screen (08/05/2024 3:00 PM EST) Syphilis Screen Nonreactive Nonreactive [facility] Blood Venous blood specimen / Unknown 08/05/2024 3:00 PM EST 08/05/2024 4:36 PM EST [facility] LAB BLOOD ORDERABLES Megan l Result Performing Organization Address [facility] Co de Phone Number [facility] [address] [place] [phone] * Creatinine, Serum (08/05/2024 3:00 PM EST) Pathologist [facility] Creatinine, Serum 0.83 0.5 - 1.4 mg/dL [facility] Estimated Glomerular Filt Rate >60 [facility] Comment:Chronic Kidney Disea se: Estimated GFR < 60 mL/min/1.71x5Hkanep Kidney Disease: Estimated GFR < 15 mL/min/1.73m2 Blood 08/05/2024 3:0 0 PM EST 08/05/2024 4:36 PM EST [facility] BLOOD ORDERABLES Megan l Result Performing Organization Address [facility] Co de Phone Number [facility] [address] [place] [phone] * Hepatitis C Antibody with Reflex to HCV, RNA, Quantitative, Real-Time PCR (08/05/2024 3:00 PM EST) [facility] Hepatitis C Antibody Nonreactive Nonreactive [facility] Comment:Antibodies to HCV no t detected; does not exclude early acuteHCV infection. Blood Venous blood specimen / Unknown 08/05/2024 3:00 PM EST 08/05/2024 4:36 PM EST [facility] LAB BLOOD ORDERABLES Megan l Result Performing Organization Address [facility] Co de Phone Number [facility] [address] [place] [phone] * Chlamydia/N. Gonorrhoeae RNA, TMA, Urine (08/05/2024 3:00 PM EST) CT PCR NOT DETECTED Not Detect. [facility] Comment:A not detected test result does [...] psychologicalconsequences. NG PCR NOT DETECTED Not Detect. [facility] Comment:A not detected test result does [...] PM EST 08/05/2024 4:49 PM EST Narrative [facility] - 08/06/2024 3:46 PM EST Urine us Mirella Emerson CNM LAB MICROBIOLOGY - GENERA L ORDERABLES Final Result [facility] [address] [place] [phone] * Hepatitis B surface antigen, EIA (08/05/2024 3:00 PM EST) Pathologist [facility] Hepatitis B Surface Ag Negative Negative [facility] Blood Venous blood specimen / Unknown 08/05/2024 3:00 PM EST 08/05/2024 4:36 PM EST [facility] LAB BLOOD ORDERABLES Megan l Result Performing Organization Address City/[facility]/ZIP Co de Phone Number [facility] [address] [place] [phone] * Hepatitis B Core Antibody, Total (08/05/2024 3:00 PM EST) Pathologist [facility] Hepatitis B Core Antibody Nonreactive Nonreactive [facility] Blood Venous blood specimen / Unknown 08/05/2024 3:00 PM EST 08/05/2024 4:36 PM EST [facility] LAB BLOOD ORDERABLES Megan l Result Performing Organization Address City/[facility] Co de Phone Number [facility] [address] [place] [phone] * HIV-1/2 Antigen and Antibodies, Fourth Generation, with Reflexes (08/05/2024 3:00 PM EST) Pathologist [facility] HIV AB/AG Nonreactive Nonreactive [facility] Comment:HIV-1 p24 Ag and/or HIV-1/HIV-2 Ab not detected.A test result that is nonreactive does not exclude thepossibility of exposure to or infection with HIV-1 and/orHIV-2. Nonreactive results in this assay for individualswith prior exposure to HIV-1 and/or HIV-2 may be due toantigen and antibody levels that are below the limit ofdetection of this assay.[employer] HIV Ag/Ab Combo assay result andsupplemental assay results should be interpreted inconjunction with the patient's clinical presentation,history and other laboratory results. If the results areinconsistent with clinical evidence, additional testing issuggested to confirm the result. Blood Venous blood specimen / Unknown 08/05/2024 3:00 PM EST 08/05/2024 4:36 PM EST Mirella Meeksprimitivo [facility] LAB BLOOD ORDERABLES Megan l Result Performing Organization Address City/[facility] Co de Phone Number [facility] [address] [place] [address] [phone] * Hepatitis B Surface Antibody, Qualitative (08/05/2024 3:00 PM EST) ~Hepatitis B Surface Antibody NONREACTIVE Nonreactive [facility] Comment:Nonreactive: < 8.00 mIU/mL Blood Venous blood specimen / Unknown 08/05/2024 3:00 PM EST 08/05/2024 4:36 PM EST [facility] Center[facility]lla Rinataly [facility] LAB BLOOD ORDERABLES Megan l Result Performing Organization Address City/[facility] Co de Phone Number [facility] [address] [place] [address] [phone] from Last 3 Months Insurance [facility] C3 * Guarantor: Sarthak Stoddard Account Type Relation to Patient Date of Phone Billing Address Dental Self 2005 [address] [place] [address] [facility] MEDICAID STAND ADULT Care Teams Gunnery/Ordnance Officer Relationship Specialty Start Date End Date Collette Porras NP [address] [place] [phone] PCP - General Family Medicine 04/22/23
--- OUTSIDE RECORDS SUMMARY | 2024-10-11 18:07 | XMS_ITS | Encounter Summary ---
Author Organization [email or web address] Address [address] [facility] 7 [place] [address] Care Team Providers Care Lockstitch Front Maker Name Role Phone Karleykelly Collette PACHECO Primary Care Provider [phone] Encounter Details Date Type Department Care Team ([facility] st Contact Info) Description 02/17/2024 Orders Only [facility] MEDICINE [address] [place], [place] [phone] Mirella Emerson CNM [address] [place], [place] [phone] Social History Tobacco Use Types Packs/Day Years [...] documented as of this encounter Care Teams Lockstitch Front Maker Relationship Specialty Start Date End Date Collette Porras NP [address] [place] [address] PCP - General Family Medicine 04/22/23 documented as of this encounter
--- OUTSIDE RECORDS SUMMARY | 2024-10-11 18:07 | XMS_ITS | Encounter Summary ---
Author Organization [employer] Address [address] [place] [address] 7 [place] [address] Care Team Providers Care Pageant Director Name Role Phone Collette Porras PACHECO Primary Care Provider [phone] Encounter Details Date Type Department Care Team [...] documented as of this encounter Care Teams Pageant Director Relationship Specialty Start Date End Date Collette Porras NP [address] [place] [address] PCP - General Family Medicine 04/22/23 documented as of this encounter
--- OUTSIDE RECORDS SUMMARY | 2024-10-11 18:07 | XMS_ITS | Encounter Summary ---
Author Organization [employer] Address [address] [facility] 7 [place] [address] Care Team Providers Care Otm Consultant Name Role Phone Collette Porras NP Primary Care Provider [phone] Encounter Details Date Type Department Care Team ([facility] st Contact Info) Description 07/24/2023 Abstract [facility] MEDICINE [address] [place], [place] [phone] Collette Porras NP [address] [place], [place] [phone] Social History Tobacco Use Types Packs/Day Years [...] documented as of this encounter Care Teams Otm Consultant Relationship Specialty Start Date End Date Collette Porras NP [address] [place] [phone] PCP - General Family Medicine 04/22/23 documented as of this encounter
--- OUTSIDE RECORDS SUMMARY | 2024-10-11 18:07 | XMS_ITS | Encounter Summary ---
Author Organization [employer] [facility] Address [address] [place] [address] 7 [place] [address] Care Team Providers Care Product Controller Name Role Phone Karleykelly Collette BERGMAN Primary Care Provider [phone] Reason for Visit * Reason Comments Gynecologic Exam Encounter Details Date Type Department Care Team ([facility] st Contact Info) Description 10/11/2024 1:00 PM EDT Office Visit [facility] MEDICINE [address] [place] [address] Mirella Emerson CNM [address] [place] [address] Urinary frequency (Primary Dx); Vaginal discharge; Routine [...] a 19 y.o. 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 New [...] Unknown 10/11/2024 2:06 PM EDT Mirella Emerson [facility] POINT OF CARE TEST ENTER/ EDIT ORDERABLES [...] Media Lot # [id number] Lot# Expiration Date [id number] Urine 10/11/2024 1:21 PM EDT Mirella Emerson [facility] POINT OF CARE TEST ENTER/ EDIT ORDERABLES [...] documented as of this encounter Care Teams Product Controller Relationship Specialty Start Date End Date Collette Porras NP [address] [place] [address] PCP - General Family Medicine 04/22/23 documented as of this encounter
--- OUTSIDE RECORDS SUMMARY | 2024-10-11 18:07 | XMS_ITS | Encounter Summary ---
Author Organization [employer] Address [address] [place] [address] 7 [place] [address] Care Team Providers Care Radiology Scheduler Name Role Phone Collette Porras NP Primary Care Provider [phone] Reason for Visit * Reason Onset Date Comments Nurse Triage 02/23/2024 Encounter Details Date Type Department Care Team ([facility] st Contact Info) Description 02/23/2024 Telephone [facility] MED[facility]INE [address] [place] [address] Collette Porras NP [address] [place], [place] [phone] Nurse Triage Social History Tobacco Use Types [...] documented as of this encounter Care Teams Radiology Scheduler Relationship Specialty Start Date End Date Collette Porras NP [address] [place] [address] PCP - General Family Medicine 04/22/23 documented as of this encounter
[2024-10-13 13:13] LABS: Trichomonas (NAAT) NOT DETECTED (NOT DETECTED)
[2024-10-13 15:54] LABS: C. trachomatis RNA TMA NOT DETECTED (NOT DETECTED); N. gonorrhoeae RNA TMA NOT DETECTED (NOT DETECTED)
[2024-10-15 09:24] LABS: C. Trachomatis RNA TMA, Throat NOT DETECTED; N. gonorrhoeae RNA TMA, Throat NOT DETECTED
== END 2024-10-11 16:39 | disposition home or self-care (01) ==
LOC: HO.HHCLNP 16:38
PROVIDERS: Visit Provider Advanced Practice Midwife
DX: Z12.4 Encounter for screening for malignant neoplasm of cervix (principal); Z11.3 Encounter for screening for infections with a predominantly sexual mode of transmission
CPT/HCPCS: 87491; 87591; 87661; 88175

== ENCOUNTER 2025-01-18 15:42 | Outpatient (REF) | payer MEDICAID, SELFPAY ==
--- OUTSIDE RECORDS SUMMARY | 2025-01-18 16:03 | XMS_ITS | Encounter Summary ---
Author Organization [employer] Address [address] [facility] 7 [place] [address] Care Team Providers Care Social Scientist Name Role Phone Collette Porras NP Primary Care Provider [phone] Encounter Details Date Type Department Care Team (Late st Contact Info) Description 07/24/2023 Abstract [facility] MED[facility]INE [address] [place], [place] [phone] Collette Porras NP [address] [place], [place] [phone] Social History Tobacco Use Types Packs/Day Years [...] documented as of this encounter Care Teams Social Scientist Relationship Specialty Start Date End Date Collette Porras NP [address] [place] [address] PCP - General Family Medicine 04/22/23 documented as of this encounter
[2025-01-18 21:58] LABS: Bacterial Vaginosis PCR NEGATIVE (Negative); Candida Group PCR NOT DETECTED (Not Detect); Candida glab krusei PCR NOT DETECTED (Not Detect); Trichomonas vaginalis PCR NOT DETECTED (Not Detect)
[2025-01-18 22:33] LABS: CT PCR NOT DETECTED (Not Detect.); NG PCR NOT DETECTED (Not Detect.)
[2025-01-19 03:21] LABS: Syphilis Screen Nonreactive (Nonreactive)
[2025-01-19 03:25] LABS: HIV Num 1 0.05 S/CO (0.00-0.99)
[2025-01-21 00:59] LABS: C. Trachomatis RNA TMA, Throat NOT DETECTED; N. gonorrhoeae RNA TMA, Throat NOT DETECTED
== END 2025-01-18 15:43 | disposition home or self-care (01) ==
LOC: HO.HHCL 15:42
PROVIDERS: PCP Nurse Practitioner; Visit Provider Advanced Practice Midwife
DX: Z11.3 Encounter for screening for infections with a predominantly sexual mode of transmission (principal); N94.6 Dysmenorrhea, unspecified
CPT/HCPCS: 81515; 86780; 87389; 87491; 87591

== ENCOUNTER 2025-02-02 09:30 | Outpatient (REF) | payer MEDICAID, SELFPAY ==
--- NOTE | ~2025-02-02 | US_ITS ---
EXAMINATION: US PELVIS TRANSABDOMINAL AND TRANSVAGINAL HISTORY: dysmenorrhea COMPARISON: Comparison is made with the prior examination dated 11/07/2019. TECHNIQUE: Transabdominal and endovaginal real-time 2D novak-scale ultrasound was performed. FINDINGS: Uterus: The uterus is normal in size, measuring 7.9 x 3.6 x 5.1 cm. Myometrium has a normal echotexture. No fibroids are identified. There are prominent periuterine vessels, of uncertain significance. Endometrium: The endometrial stripe measures 4 mm in thickness. Right ovary: The right ovary measures 3.7 x 1.9 x 2.5 cm. The right ovary is normal in size and echotexture. Left ovary: The left ovary measures 2.5 x 1.3 x 1.6 cm. The left ovary is normal in size and echotexture. Pelvic fluid: none. US/US pelvic and transvaginal IMPRESSION: Prominent periuterine vessels, of uncertain significance. Otherwise unremarkable pelvic ultrasound. Electronically signed by: [employer] MD 02/02/2025 10:33 AM EDT
--- OUTSIDE RECORDS SUMMARY | 2025-02-02 10:00 | XMS_ITS | Encounter Summary ---
Author Organization [employer] Address [address] [facility] 7 [place] [address] Care Team Providers Care Data Management Consultant Name Role Phone Collette Porras NP Primary Care Provider [phone] Encounter Details Date Type Department Care Team (Late st Contact Info) Description 07/24/2023 Abstract [facility] MEDICINE [address] [place], [place] [phone] Collette Porras NP [address] [place], [place] [phone] Social History Tobacco Use Types Packs/Day Years [...] documented as of this encounter Care Teams Data Management Consultant Relationship Specialty Start Date End Date Collette Porras NP [address] [place] [address] PCP - General Family Medicine 04/22/23 documented as of this encounter
== END 2025-02-02 09:31 | disposition home or self-care (01) ==
LOC: HO.US 09:30
PROVIDERS: Visit Provider Advanced Practice Midwife
DX: N94.6 Dysmenorrhea, unspecified (principal)
CPT/HCPCS: 76830; 76856

== ENCOUNTER → 2025-02-02 09:31 | Outpatient (BNV) | payer MEDICAID, SELFPAY | PROVIDERS: Visit Provider Radiology Diagnostic Radiology | DX: N94.6 Dysmenorrhea, unspecified (principal) | CPT/HCPCS: 76830; 76856 ==

== ENCOUNTER 2025-07-06 19:27 | Emergency (ER) | payer MEDICAID, SELFPAY ==
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
[2025-07-06 19:30] VITALS: BP 127/73; PULSE 63; RESP 18; TEMP 36.3; O2SAT 99; BMI 26.0
--- NOTE | 2025-07-06 19:40 | PC.NURSE ---
pt reported to this rn that she would like to have no visitors and no updates to any person who calls for pt. foxing closer Sandy made aware and Primary RN Louann made aware. pt significant other in room with pt at this time
--- OUTSIDE RECORDS SUMMARY | 2025-07-06 19:48 | XMS_ITS | Clinical Summary ---
Author Organization [employer] Address [address] [facility] 7t [place] [address] Care Team Providers Care Search Engine Marketing Manager Name Role Phone Collette Porras NP Primary Care Provider [phone] Crystal Finn RN Unavailable [phone] Oralia Cassidy Unavailable Allergies Active Allergy Reactions Criticality Noted Date Comments Egg Protein (Egg White) 12/25/2022 Latex Hives 12/25/2022 Shellfish Allergy High 12/25/2022 Medications * This document contains information received from the source organization and may not represent a complete record from that organization. fluticasone (Flonase) 50 MCG/ACT nasal sprayIndications :Seasonal allergic rhinitis, unspecified trigger Administer 1 spray into each nostril in the morning. Shake gently. Before first use, prime pump. After use, clean tip and replace cap. 16 g 2 3 Active Additional Information Patient not taking.Reported on 09/24/2023 Nebulizers miscIndications: Moderate asthma with exacerbation, unspecified whether persistent Use nebulizer as instructed 1 each 4 Active Respiratory Therapy Supplies (Nebulizer/Tubin g/Mouthpiece) kitIndications:M oderate asthma with exacerbation, unspecified whether persistent To be used with Nebulizer 1 kit 2 4 Active Mometasone Furoate (Asmanex HFA) 100 MCG/ACT aerosolIndicatio ns:Moderate asthma with exacerbation, unspecified whether persistent Inhale 1 puff 2 times daily. Rinse and spit mouth after each use 13 g 4 Active albuterol 108 (90 Base) MCG/ACT inhalerIndicatio ns:Moderate asthma with exacerbation, unspecified whether persistent Take 1-2 puffs q6 hr as needed wheezing or shortness of breath 18 g 3 4 Active cetirizine (ZyrTEC) 10 MG tabletIndication s:Seasonal allergies Take 1 tablet (10 mg) by mouth at bedtime. 30 tablet 3 4 Active cholecalciferol (Vitamin D-3) 20 MCG (800 UNIT) tablet Take 1 tablet (20 mcg) by mouth Once per day. 30 tablet 2 4 Active Vit-Fe Fumarate-FA ( 19) chewable tablet Chew 1 tablet Once per day. 90 tablet 3 5 02/03/20 26 Active Compound W Maximum Strength 17 % gelIndications:F oot callus APPLY TOPICALLY TO THE AFFECTED AREA(S) EVERY DAY DIRECTED 7 g 1 5 Active naproxen (Naprosyn) 500 MG tabletIndication s:Nonintractable headache, unspecified chronicity pattern, unspecified headache type Take 1 tab with food bid x10 days then as needed 30 tablet 5 Active melatonin 5 MG tabletIndication s:Sleep disorder Take 1 tab one hour before bedtime as needed for insomnia 30 tablet 1 5 Active Active Problems Problem Noted Date Diagnosed [...] receive help PLAN: 1. Follow up with [facility]: Not recommended for follow-up 2. Patient goal is obtain housing 3. Behavioral Recommendations a. Patient will engage with case management b. Patient may request to speak with a [facility] during next PCP visit, if needed Constipation 12/25/2022 Maternal varicella, non-immune 12/25/2022 Pilonidal disease 02/01/2022 Overweight 12/11/2021 Anxiety 12/10/2018 Allergic rhinitis 04/29/2013 Contact dermatitis 04/29/2013 Resolved Problems Problem Noted Date Diagnosed Date Resolved Date Environmental and seasonal allergies 12/25/2022 12/25/2022 Mild intermittent asthma 12/25/2022 Encounters Date Type Department Care Team Description 07/05/[address] [address] Collette Porras NP recall appt 06/20/2025 Patient Outreach [address] [address] Collette Porras NP Care Coordination ([facility] telephone call outreach) 06/20/2025 Patient Outreach [address] [address] Collette Porras NP Care Coordination ([facility] -[facility] chart review) 06/20/2025 Patient Outreach [address] [address] Collette Porras NP Care Management ([facility] -CHART REVIEW/) 06/20/2025 Patient Outreach [address] [address] Collette Porras NP from Last 3 Months Immunizations Immunization Administration Dates Next Due DTaP 08/10/2007, 5,03/23/2004,10/24,2003 HPV 9-Valent 08/01/2016 HPV, Quadrivalent 08/02/2014 Hep A, ped/adol, 2 dose 08/02/2014,04/29/2013 Hep B, Adolescent or Pediatric 03/23/2004,2003,2003 Hib (HbOC) 09/12/2004,2003,2003 IPV 08/10/2007, 4,2003,08/16 Influenza injectable quadriv alent preservative free 06/18/2023,05/25/2019,06/16/2017,08/01,08/02/2014 Influenza, IIV3, injectable 04/10/2020 Influenza, Split (incl. khai fied surface antigen) 04/29/2013 Influenza, seasonal, injecta ble, preservative free 04/02/2024,04/10/2020 MMR 08/10/2007,2004 Meningococcal MCV4P ACYW-135 12/11/2021,08/02/19 15 [...] is your housing situation today? I have reick kimbrough 03/26/[address] you [...] Q2 Not on file 03/26/2024 Comments No Intention Date Recorded Wants to become (finding) 01/18 Sex and Gender Information Value Date Recorded Sex Assigned at Female 05/13/2022 10:25 AM EDT Legal Sex Female 10:25 AM EDT Gender Identity Female 05/13/2022 10:25 AM EDT Sexual Orientation Straight 05/13/2022 10 :25 AM EDT Last Filed Vital Signs Vital Sign Reading Time Taken Comments Blood Pressure 128/78 03/10/2025 3:25 PM EDT Pulse 76 03/10/2025 3:25 PM EDT Temperature 36.9 C (98.5 F) 03/10/2025 3:25 PM EDT Respiratory Rate 20 03/10/2025 3:25 PM EDT Oxygen Saturation 100% 10/11/2024 1:04 PM EDT Inhaled Oxygen Concentration - - Weight 59.6 kg (131 lb 8 oz) 03/10/2025 3:25 PM EDT Height 150 cm (4' 11.06 ) 03/10/2025 3:25 PM EDT Body Mass Index 26.51 03/10/2025 3:25 PM EDT Plan of Treatment Health Maintenance Due Date Last Done Comments Alcohol/Substance Use Screening 2015 Dental Oral Exam 04/19/2016 10/18/2015, , 09/28/2014, Additional history exists Dental Prophylaxis 04/19/2016 10/18/2015, 0 04/07/2015, 09/28/2014, Additional history exists Dental X-Ray: Bitewings 10/18/2016 10/18/19 16, 04/07/2015, 09/28/2014, Additional history exists Dental X-Ray: Full Mouth 10/20/2017 10/19/2014 Meningococcal B Vaccine (1 of 2 - Standard) 2019 Pneumococcal Vaccine: Pediatrics (0 to 5 Years) and At-Risk Patients (6 to 49) Years (1 of 2 - PCV) 2022 08/10/2007, 03/23/2004, 2003, Additional history exists COVID-19 Vaccine (4 - 2024- season) 2025 06/18/2023, 02/06/2022, 12/12/2021 Influenza Vaccine (#1) 2025 4, 06/18/2023, 04/10/2020, Additional history exists SDOH Screening 03/26/2025 03/26/2024 Depression Screening 04/02/2025 04/02/2024, 04/02/20 Chlamydia and Gonorrhea Screening 01/18/2026 01/18/2025, 01/18/2025, 10/11/2024, Additional history exists Disability Screening 01/18/2026 01/18/2025 Family Planning (PISQ) 01/18/2026 01/18/2025 Tobacco Screening 03/10/2026 03/10/2025 Pap Smear 10/12/2027 10/11/2024 DTaP/Tdap/Td Vaccines (9 - Td or [...] 08/01/2016, 08/02/2014 Meningococcal Vaccine Completed 12/11/2021, 015 Hepatitis C Screening Completed 08/05/2024 , 12/25/2022, 12/11/2021 HIV Screening Completed 01/18/2025, 09/13, 08/05/2024, Additional history exists RSV under 20 months Aged Out No longe r eligible based on patient's age to complete this topic Rotavirus Vaccines Aged Out No longer eligible based on patient's age to complete this topic Procedures Procedure Name Priority Date/Time Associated Diagnosis Comments HIV 1/2 ANTIGEN/ANTIBODY, FOURTH GENERATION W/RFL Routine 01/18/2025 3:46 PM EDT Encntr screen for infections w sexl mode of transmiss CHLAMYDIA/N. GONORRHOEAE RNA, TMA, UROGENITAL Routine 01/18/2025 3:46 PM EDT Encntr screen for infections w sexl mode of transmiss PAP SMEAR Routine 10/11/2024 1:21 PM EDT Routine cervical smear HEPATITIS C AB W/REFL TO HCV RNA, [...] Recently Relevant to Health Maintenance Results * Chlamydia/N. Gonorrhoeae RNA, TMA, Vagina (01/18/2025 3:46 PM EDT) Pathologist [facility] CT PCR NOT DETECTED Not Detect. [facility] Comment:A not detected test result [...] psychologicalconsequences. NG PCR NOT DETECTED Not Detect. [facility] Comment:A not detected test result [...] lead to adverse medical, social or psychologicalconsequences. Swab Vaginal structure / Unknown 01/18/2025 3:46 PM EDT 01/18/2025 5:14 PM EDT [facility] MICROBIOLOGY - GENERA L ORDERABLES Final Result Performing Organization Address [facility] Co de Phone Number [facility] [address] [place] [phone] * HIV-1/2 Antigen and Antibodies, Fourth Generation, with Reflexes (01/18/2025 3:46 PM EDT) HIV AB/AG Nonreactive Nonreactive [facility] Comment:HIV-1 p24 Ag and/or HIV-1/HIV-2 Ab not detected.A test result that is nonreactive does not exclude thepossibility of exposure to or infection with HIV-1 and/orHIV-2. Nonreactive results in this assay for individualswith prior exposure to HIV-1 and/or HIV-2 may be due toantigen and antibody levels that are below the limit ofdetection of this assay.The [employer] HIV Ag/Ab Combo assay result andsupplemental assay results should be interpreted inconjunction with the patient's clinical presentation,history and other laboratory results. If the results areinconsistent with clinical evidence, additional testing issuggested to confirm the result. Blood Venous blood specimen / Unknown 01/18/2025 3:46 PM EDT 01/18/2025 5:13 PM EDT [facility] BLOOD ORDERABLES Megan l Result Performing Organization Address [facility] Co de Phone Number [facility] [address] [place] [phone] * Pap Smear (10/11/2024 1:21 PM EDT) Swab Cervix uteri structure / Unknown 10/11/2024 1:21 PM EDT 10/12/2024 6:00 AM EDT [facility] - 10/14/2024 9:32 AM EDT ----- ------- Name: Sarthak Stoddard Age/Sex: 19/F : 2005 Unit#: [id number] Attend Dr: MIRELLA DEAL CNM Re10/11/24 Status: DEP REF Location: .HHCLNP Disch: ----- ------- SPEC : [id number] RECD: 10/12/24 STATUS: JOSIANE PATEL NUM: [id number] ORTIZ: 10/11/24-13[address] [facility] [address]: MIRELLA DEAL CNM ENTERED: 10/12/24 SP TYPE: Pap [facility] : ORDERED: Pap Smear Interpretation Satisfactory for evaluation. Negative for intraepithelial lesion or malignancy. Coccobacilli consistent with shift in vaginal january. Clinical Information LMP:09/19/24 Previous PAP test:Unknown date/findings Material Received ThinPrep-Cervical ----- ------- Signed (signature on file) TAMERA Masters ([facility]) 10/14/24 0932 ----- ------- END OF REPORT Mirella Deal [facility] CYTOLOGY ORDERABLES F inal Result Performing Organization Address [facility] de Phone Number [facility] [address] [place] [phone] * Hepatitis C Antibody with Reflex to HCV, RNA, Quantitative, Real-Time PCR (08/05/2024 3:00 PM EST) [facility] Hepatitis C Antibody Nonreactive Nonreactive [facility] Comment:Antibodies to HCV no t detected; does not exclude early acuteHCV infection. Blood Venous blood specimen / Unknown 08/05/2024 3:00 PM EST 08/05/2024 4:36 PM EST Mirella Deal [facility] LAB BLOOD ORDERABLES Megan l Result Performing Organization Address [facility] de Phone Number [facility] [address] [place] [phone] from Last 3 Months or Most Recently Relevant to Health Maintenance Insurance [facility] C3 [facility] MEDICAID STAND ADULT Care Teams Search Engine Marketing Manager Relationship Specialty Start Date End Date Collette Porras NP [address] [place] [phone] PCP - General Family Medicine 04/22/23 Crystal Finn, RN [address] [place] [address] Registered Nurse Family Medicine 06/20/25 Oralia Cassidy 06/20/25
--- OUTSIDE RECORDS SUMMARY | 2025-07-06 19:48 | XMS_ITS | Encounter Summary ---
Author Organization [employer] Address [address] [place] [address] 7 [place] [address] Care Team Providers Care Senior Software Tester Name Role Phone Collette Porras NP Primary Care Provider [phone] Crystal Finn RN Unavailable [phone] Oralia Cassidy Unavailable Reason for Visit * Reason Onset Date Comments Lab Orders 06/17/2023 Encounter Details Date Type Department Care Team (Late st Contact Info) Description 06/17/[address] [facility] [address] [place], [place] [phone] Collette Porras NP [address] [place] [address] Lab Orders Social History Tobacco Use Types [...] No answer. LVM to call back on [phone]. * Telephone Encounter - Dorie Goss - [...] documented as of this encounter Care Teams Senior Software Tester Relationship Specialty Start Date End Date Collette Porras NP [address] [place] [address] PCP - General Family Medicine 04/22/23 Crystal Finn RN [address] [place] [address] Registered Nurse Family Medicine 06/20/25 Oralia Cassidy 06/20/25 documented as of this encounter
--- OUTSIDE RECORDS SUMMARY | 2025-07-06 19:48 | XMS_ITS ---
Author Organization [employer] Address [address] [place] [address] [place] [address] Care Team Providers Care Blasting Helper Name Role Phone Collette Porras NP Primary Care Provider [phone] Crystal Finn RN Unavailable [phone] Oralia Cassidy Unavailable CHW Complex Status:Outreach In Progress (Enrolling) Start date:06/20/2025 Enrollment reason:ADT Feed Overview ED- Pt went to [facility] ED on 06/17/25. Please outreach to patient. Case Team Name Relationship Phone Oralia Cassidy(Responsible Staff) Continued Care and Services Coordination
--- OUTSIDE RECORDS SUMMARY | 2025-07-06 19:48 | XMS_ITS ---
Author Organization [employer] [facility] Address [address] [place] [address] [place] [address] Care Team Providers Care Database Consultant Name Role Phone Collette Porras NP Primary Care Provider [phone] Crystal Finn RN Unavailable [phone] Oralia Cassidy Unavailable CM Complex Status:Outreach In Progress (Enrolling) Start date:06/20/2025 Enrollment reason:ADT Feed Overview ED- Pt went to [facility] on 06/17/25. Case Team Name Relationship Phone Crystal Finn RN(Responsible Staff) Registered Nurse Continued Care and Services Coordination
--- OUTSIDE RECORDS SUMMARY | 2025-07-06 19:48 | XMS_ITS | Encounter Summary ---
Author Organization [employer] Address [address] [place] [address] 7 [place] [address] Care Team Providers Care Life Sciences Instructor Name Role Phone Collette Porras NP Primary Care Provider [phone] Crystal Finn RN Unavailable [phone] Oralia Cassidy Unavailable Reason for Visit * Reason Onset Date Comments recall appt 07/05/2025 Encounter Details Date Type Department Care Team ([facility] st Contact Info) Description 07/05/2025 Telephone [facility] MED[facility]INE [address] [place], [place] [phone] Collette Porras NP [address] [place], [place] [phone] recall appt Social History Tobacco Use Types Packs/Day Years [...] encounter Miscellaneous Notes * Telephone Encounter - Stefani Evangelista MA - 07/05/2025 1:16 PM EST I called pt to schedule for June recall for Physical but no answer was made and so I LVM and moved up recall accordingly. Letter will be sent to pt. documented in this encounter Plan of Treatment Not on file documented as of this encounter Visit Diagnoses Not on filedocumented in this encounter Additional Health Concerns Assessment Noted Time PHQ-9 Depression Total Score: 1 04/02/20 24 9:54 AM EDT documented as of this encounter Care Teams Life Sciences Instructor Relationship Specialty Start Date End Date Collette Porras NP [address] [place] [address] PCP - General Family Medicine 04/22/23 Crystal Finn RN [address] [place] [address] Registered Nurse Family Medicine 06/20/25 Oralia Cassidy 06/20/25 documented as of this encounter
--- OUTSIDE RECORDS SUMMARY | 2025-07-06 19:48 | XMS_ITS | Encounter Summary ---
Author Organization [employer] Address [address] [facility] 7 [place] [address] Care Team Providers Care Manager Commodities Name Role Phone Collette Porras NP Primary Care Provider [phone] Crystal Finn RN Unavailable [phone] Oralia Cassidy Unavailable Encounter Details Date Type Department Care Team (Late st Contact Info) Description 07/24/2023 Abstract [facility] MEDICINE [address] [place], [place] [phone] Collette Porras NP [address] [place] [address] Social History Tobacco Use Types Packs/Day Years [...] documented as of this encounter Care Teams Manager Commodities Relationship Specialty Start Date End Date Collette Porras NP [address] [place] [address] PCP - General Family Medicine 04/22/23 Crystal Finn RN [address] [place] [phone] Registered Nurse Family Medicine 06/20/25 Oralia Cassidy 06/20/25 documented as of this encounter
--- OUTSIDE RECORDS SUMMARY | 2025-07-06 19:48 | XMS_ITS | Encounter Summary ---
Author Organization [employer] Address [address] [facility] 7 [place] [address] Care Team Providers Care Pool Servicer Name Role Phone Collette Porras NP Primary Care Provider [phone] Crystla Finn RN Unavailable [phone] Oralia Cassidy Unavailable Encounter Details Date Type Department Care Team (Late st Contact Info) Description 02/17/2024 Orders Only [facility] MEDICINE [address] [place], [place] [phone] Mirella Emerson CNM [address] [place] [address] Social History Tobacco Use Types Packs/Day Years [...] documented as of this encounter Care Teams Pool Servicer Relationship Specialty Start Date End Date Collette Porras NP [address] [place] [address] PCP - General Family Medicine 04/22/23 Crystal Finn RN [address] [place] [address] Registered Nurse Family Medicine 06/20/25 Oralia Cassidy 06/20/25 documented as of this encounter
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
[2025-07-06 20:28] LABS: MANUAL DIFF FLAG NO
[2025-07-06 20:29] LABS: Hematocrit 32.1 % (37.0-47.0); Hemoglobin 10.5 g/dl (12.0-16.0); Imm Gran Abs Auto 0.02 X10*3/uL (0.00-0.03); Imm Gran Pct Auto 0.2 % (0.0-0.4); Lymphocytes Absolute Auto 1.8 X10*3/uL (1.2-4.9); Mean Corpuscular HGB Conc 32.7 g/dl (31.0-35.0); Mean Corpuscular Hemoglobin 27.3 pg (27.0-33.0); Mean Corpuscular Volume 83.4 fL (80.0-98.0); NRBC Abs Auto 0.000 X10*3/uL (0.0-0.012); NRBC Pct Auto 0.0 /100WBC (0.0-0.2); Platelet Count 251 X10*3/uL (160-400); Red Blood Count 3.85 X10*6/uL (4.20-5.50); White Blood Count 8.5 X10*3/uL (4.8-10.8)
[2025-07-06] MEDS: Lidocaine HCl Viscous 2 % 15 ML SOLUTION MUCOUS MEM (20:45)
[2025-07-06 20:50] LABS: Alanine Aminotransferase 22 U/L (0-31); Albumin Level 4.1 g/dL (3.5-5.0); Alkaline Phosphatase 61 U/L (39-117); Anion Gap 12 (12-20); Aspartate Amino Transferase 31 U/L (5-31); Blood Urea Nitrogen 8 mg/dL (9-16); Calcium 8.9 mg/dL (8.4-10.2); Carbon Dioxide 25 mmol/L (22-29); Chloride 109 mmol/L (96-108); Creatinine Clr Calc Pharmacy 107.2; Estimated Glomerular Filt Rate > 60; Potassium 3.5 mmol/L (3.3-5.1); Sodium 142 mmol/L (135-145); Total Protein 7.2 g/dL (6.5-8.0)
[2025-07-06 22:04] VITALS: BP 118/77; PULSE 60; RESP 19; TEMP 36.9; O2SAT 98
[2025-07-06] MEDS: Lidocaine HCl 2 % MPF 5 ML VIAL INFILTRATI (22:53)
--- NOTE | 2025-07-06 22:54 | PC.NURSE ---
Lidocaine administered by provider
[2025-07-06 23:06] VITALS: BP 129/78; PULSE 79; RESP 20; TEMP 36.6; O2SAT 98
[2025-07-06 23:24] VITALS: BP 129/78; PULSE 79; RESP 20; TEMP 36.6; O2SAT 98
== END 2025-07-06 23:24 | disposition home or self-care (01) ==
PROVIDERS: Emergency Provider Emergency Medicine; PCP Nurse Practitioner
DX: S00.83XA Contusion of other part of head, initial encounter (principal); S01.511A Laceration without foreign body of lip, initial encounter; Y04.2XXA Assault by strike against or bumped into by another person, initial encounter; Y93.89 Activity, other specified; Y92.9 Unspecified place or not applicable; Y99.9 Unspecified external cause status
CPT/HCPCS: 12052; 36415; 70486; 80053; 84702; 85025; 99284; J2003

== ENCOUNTER → 2025-07-06 20:27 | Outpatient (BNV) | payer MEDICAID, SELFPAY | PROVIDERS: Emergency Provider Emergency Medicine; PCP Nurse Practitioner; Visit Provider Student in an Organized Health Care Education/Training Program | DX: S09.93XA Unspecified injury of face, initial encounter (principal); J32.0 Chronic maxillary sinusitis | CPT/HCPCS: 70486 ==